=== PATIENT | male | born 1955 | race Caucasian/White ===

== ENCOUNTER → 2017-02-27 | Outpatient (CLI) | payer OTHER ==
[~2017-02-27] MED LIST: ASPIRIN 32325 MG/TAB PO; COLACE 100100 MG/CAP PO; EXCEDRIN1 TAB PO; NORCO 325 MG-51 TAB PO; ONE-A-DAY MEN'S1 TAB PO; PYRIDIUM200 M1 PO
== END ==
LOC: COL.RAD 13:30
DX: N28.1 Cyst of kidney, acquired (principal); N28.9 Disorder of kidney and ureter, unspecified; F17.200 Nicotine dependence, unspecified, uncomplicated

== ENCOUNTER 2017-03-27 09:53 | Day surgery (SDC) | payer OTHER ==
[~2017-03-27] VITALS: Ht 188 cm; Wt 82.5 kg
[2017-03-27 10:23] VITALS: BP 127/63; PULSE 104; TEMP 97.7
[2017-03-27] MEDS ORDERED: EXCEDRIN1 TAB PO (10:31)
[2017-03-27] MEDS ORDERED: ASPIRIN 32325 MG/TAB PO (10:32)
[2017-03-27] MEDS ORDERED: ONE-A-DAY MEN'S1 TAB PO (10:32)
[2017-03-27 13:50] VITALS: BP 119/67; PULSE 80; TEMP 97.3
[2017-03-27 14:05] VITALS: BP 122/71; PULSE 86
[2017-03-27] MEDS ORDERED: COLACE 100100 MG/CAP PO (14:10)
[2017-03-27] MEDS ORDERED: NORCO 325 MG-51 TAB PO (14:11)
[2017-03-27] MEDS ORDERED: PYRIDIUM200 M1 PO (14:12)
[2017-03-27 14:20] VITALS: BP 119/60; PULSE 80
== END 2017-03-27 15:08 | disposition home or self-care (01) ==
LOC: SDCO 09:53
DX: N32.89 Other specified disorders of bladder (principal); I25.10 Atherosclerotic heart disease of native coronary artery without angina pectoris; G43.909 Migraine, unspecified, not intractable, without status migrainosus; F17.210 Nicotine dependence, cigarettes, uncomplicated; Z95.5 Presence of coronary angioplasty implant and graft; Z80.41 Family history of malignant neoplasm of ovary
CPT/HCPCS: J0690; J1100; J1885; J2405; J2704; J3010; J7120; Q9967